=== PATIENT | male | born 1960 | race Caucasian/White ===

== ENCOUNTER 2021-03-25 14:00 | Inpatient (IN) | payer BC ==
[~2021-03-25] VITALS: Ht 175.3 cm; Wt 82.7 kg
[2021-03-25] VITALS (14 sets, daily range): BP systolic 72–184; BP diastolic 48–115
[2021-03-25] MEDS: IV NORMAL SALINE 1000ML BAG 1,000 ML IV ONE (14:15)
[2021-03-25] MEDS: PANTOPRAZOLE IV PUSH 40 MG VIAL. IVP ONE (14:34)
[2021-03-25 14:46] LABS: BASO # 0.1 x10^3/uL (0.0-0.2); BASO % 1 % (0-3); EOS % 0 % (0-3); LYMPH # 2.3 x10^3/uL (1.0-4.8); LYMPH % 23 % (24-48); MEAN CORPUSCULAR HEMOGLOBIN 33 pg (25-35); MEAN CORPUSCULAR HGB CONC 30 g/dL (31-37); MEAN CORPUSCULAR VOLUME 109 fL (79-100); MONO # 0.8 x10^3/uL (0.0-1.1); MONO % 9 % (0-9); NEUT # 6.5 x10^3/uL (1.8-7.7); NEUT % 67 % (31-73); PLATELET COUNT 280 x10^3/uL (140-400); RED BLOOD COUNT 1.76 x10^6/uL (4.30-5.70); RED CELL DISTRIBUTION WIDTH 25.3 % (11.5-14.5); WHITE BLOOD COUNT 9.7 x10^3/uL (4.0-11.0)
[2021-03-25 14:52] LABS: FECAL OB PT POSITIVE (NEG)
[2021-03-25 14:53] LABS: CALCIUM 7.8 mg/dL (8.5-10.1); CREATININE 1.2 mg/dL (0.7-1.3); GFR 61.8; POTASSIUM 5.3 mmol/L (3.5-5.1)
[2021-03-25 14:55] LABS: PROTHROMBIN TIME PATIENT 15.8 SEC (11.7-14.0)
[2021-03-25 14:59] LABS: ALBUMIN 2.1 g/dL (3.4-5.0); ALBUMIN/GLOBULIN RATIO 0.8 (1.0-1.7); TOTAL BILIRUBIN 0.2 mg/dL (0.2-1.0); TOTAL PROTEIN 4.6 g/dL (6.4-8.2)
[2021-03-25 15:02] LABS: HEMATOCRIT 19.2 % (39.0-53.0); HEMOGLOBIN 5.7 g/dL (13.0-17.5)
--- NOTE | 2021-03-25 15:05 | PHYS DOC ---
Past Medical History Past Medical History: Diabetes-Type II Additional Past Medical Histor: high cholesterol Past Surgical History: No Surgical History General Adult EDM: Chief Complaint: HYPOTENSION HPI: HPI: Patient is a 61 year old male with history of psoriasis, HTN, DM who presents with generalized fatigue, lightheadedness, nausea/vomiting. Also states that he started having black tarry stools this morning and his vomit was coffee-ground in nature. EMS blood pressure 70s/40s initially, up to 80 SBP after some IVF just prior to arrival. Patient is not on aspirin or blood thinners. He does take chronic prednisone for psoriasis. Drinks a pint of whiskey per day. Denies history of previous GI bleeding. Endorses shortness of breath. No chest pain. Review of Systems: Review of Systems: Constitutional: Reports severe Generalized fatigue. Denies fever or chills. [] Eyes: Denies change in visual acuity. [] HENT: Denies nasal congestion or sore throat. [] Respiratory: Denies cough. Reports shortness of breath. Cardiovascular: Denies chest pain or edema. [] GI: Reports nausea, vomiting, abdominal pain, melena, coffee-ground emesis. : Denies dysuria. [] Musculoskeletal: Denies back pain or joint pain. [] Integument: Denies rash. [] Neurologic: Denies headache, focal weakness or sensory changes. [] Endocrine: Denies polyuria or polydipsia. [] Lymphatic: Denies swollen glands. [] Psychiatric: Denies depression or anxiety. [] Heart Score: C/O Chest Pain: No Current Medications: Current Medications Medications (Trade) Dose Ordered Sig/Manuel Start Time Stop Time Status Last Admin Dose Admin Pantoprazole Sodium (PROTONIX VIAL for IV PUSH) 40 mg 1X ONCE 03/25/21 14:30 03/25/21 14:31 DC 03/25/21 14:34 40 MG Sodium Chloride 1,000 ml @ 1,000 mls/hr 1X ONCE 03/25/21 14:30 03/25/21 15:29 03/25/21 14:15 1,000 MLS/HR Allergies: Allergies: Allergies Coded Allergies Type Severity Reaction Last Updated Verified No Known Drug Allergies 03/25/21 No Physical Exam: PE: Constitutional: Pale, diaphoretic, toxic appearing, shivering HENT: pale conjunctivae Cardiovascular:Heart rate regular rhythm, no murmur [] Lungs & Thorax: Bilateral breath sounds clear to auscultation [] Abdomen: Diffuse abdominal tenderness to palpation with guarding Rectal: Black stool dried around the anus, frankly bloody and melanotic stool mixed together on DREW. Fecal occult positive. Skin: Warm, dry, no erythema, no rash. [] Back: No tenderness, no CVA tenderness. [] Extremities: Mild bilateral lower extremity edema. Neurologic: Alert and oriented X 3, normal motor function, normal sensory fun ction, no focal deficits noted. [] Psychologic: Affect normal, judgement normal, mood normal. [] Current Patient Data: Labs: Laboratory Tests Test 03/25/21 14:12 03/25/21 14:15 White Blood Count 9.7 x10^3/uL (4.0-11.0) Red Blood Count 1.76 x10^6/uL (4.30-5.70) L Hemoglobin 5.7 g/dL (13.0-17.5) *L Hematocrit 19.2 % (39.0-53.0) *L Mean Corpuscular Volume 109 fL (79-100) H Mean Corpuscular Hemoglobin 33 pg (25-35) Mean Corpuscular Hemoglobin Concent 30 g/dL (31-37) L Red Cell Distribution Width 25.3 % (11.5-14.5) H Platelet Count 280 x10^3/uL (140-400) Neutrophils (%) (Auto) 67 % (31-73) Lymphocytes (%) (Auto) 23 % (24-48) L Monocytes (%) (Auto) 9 % (0-9) Eosinophils (%) (Auto) 0 % (0-3) Basophils (%) (Auto) 1 % (0-3) Neutrophils # (Auto) 6.5 x10^3/uL (1.8-7.7) Lymphocytes # (Auto) 2.3 x10^3/uL (1.0-4.8) Monocytes # (Auto) 0.8 x10^3/uL (0.0-1.1) Eosinophils # (Auto) 0.0 x10^3/uL (0.0-0.7) Basophils # (Auto) 0.1 x10^3/uL (0.0-0.2) Platelet Estimate Pending Stool Occult Blood Positive (NEG) Laboratory Tests 03/25/21 14:12 Vital Signs: Vital Signs Date Time Temp Pulse Resp B/P (MAP) Pulse Ox O2 Delivery O2 Flow Rate FiO2 03/25/21 14:54 136 16 96/54 (68) 99 Room Air 03/25/21 14:05 97.4 97.4 EKG: EKG: Sinus rhythm. Rate 140. Normal axis. [] Radiology/Procedures: Radiology/Procedures: [] Impression: [facility] [address] [place] [address] IMAGING REPORT Signed PATIENT: SIGRID WARD ACCOUNT: [id number] : 1960 LOCATION: ER AGE: 61 SEX: M EXAM STATUS: PRE ER ORD. PHYSICIAN: DANNY HEATON MD REASON: hypotension, sob PROCEDURE: CHEST AP ONLY XR CHEST 1V Clinical Indication: Reason: hypotension, sob / Comparison: None. Findings: The cardiomediastinal silhouette is normal. Lungs are clear. There is no pneumothorax. No pleural effusion is appreciated. No acute bone abnormality. IMPRESSION: No acute cardiopulmonary process. Electronically signed by: Robert Chavez MD (03/25/2021 3:48 PM) [facility] DICTATED and SIGNED BY: ROBERT CHAVEZ MD DATE: 03/25/21 [id number] Course & Med Decision Making: Course & Med Decision Making Pertinent Labs and Imaging studies reviewed. (See chart for details) Patient is 61-year-old male who presents with coffee-ground emesis, melena, and hypotension. SBP in the 70s on arrival, pale, diaphoretic, ill-appearing. Blood transfusion with uncrossed matched blood 2 units started prior to laboratory results. Hemoglobin resulted at 5.7. Still persistent hypotension, but better color after 2 units. Will give an additional 2 units as well as a unit of FFP. Blood bank is ordering platelets, but we do not have them available currently. Patient is on prednisone chronically putting him at risk for ulcerative disease, and is a heavy drinker putting him at risk for variceal disease. Given Protonix, octreotide bolus/infusion, and ceftriaxone empirically. GI paged, aware of patient. Patient will be admitted to ICU for further management. Given his diffuse abdominal tenderness, CTA of the abdomen/pelvis has also been ordered. [address] Disclaimer: Dragon Disclaimer: This electronic medical record was generated, in whole or in part, using a voice recognition dictation system. Departure Departure Impression: Primary Impression: Hemorrhagic shock Additional Impressions: GI bleed Alcohol abuse Disposition: ADMITTED INPATIENT Admitting Physician: SAUL Pacheco) Condition: CRITICAL DANNY HEATON MD Mar 25, 2021 15:05
[2021-03-25 15:42] LABS: % ATYL 3 % (0-0); % BANDS 1 % (0-9); % BASOS 1 % (0-3); % LYMPHS 26 % (24-48); % METAS 1 % (0-0); % MONOS 5 % (0-10); % MYELOS 1 % (0-0); % SEGS 62 % (35-66); NUCLEATED RBC 4
[2021-03-25 15:43] LABS: TOXIC GRANULATION MOD; TOXIC VACUOLATION SLIGHT
[2021-03-25 15:44] LABS: PLT ESTIMATE ADEQUATE (ADEQUATE); POLYCHROMASIA MOD
[2021-03-25 15:45] LABS: ANISOCYTOSIS MARKED; POIKILOCYTOSIS SLIGHT
[2021-03-25 15:46] LABS: OVALOCYTES FEW; TEAR DROP CELLS OCC
--- NOTE | 2021-03-25 15:51 | RAD ---
XR CHEST 1V Clinical Indication: Reason: hypotension, sob / Comparison: None. Findings: The cardiomediastinal silhouette is normal. Lungs are clear. There is no pneumothorax. No pleural eff usion is appreciated. No acute bone abnormality. IMPRESSION: No acute cardiopulmonary process. Electronically signed by: Robert Chavez MD (03/25/2021 3:48 PM) [facility]
[2021-03-25] MEDS ORDERED: CONTRAST GIVEN. MC PRN (16:00)
[2021-03-25] MEDS: cefTRIAXone IV Push 1 GM VIAL. IVP ONE (16:01)
[2021-03-25] MEDS: OCTREOTIDE 100 MCG/ML VIAL IV ONE (16:15)
[2021-03-25] MEDS: ONDANSETRON PF 4 MG/2 ML VIAL. IVP ONE (16:23)
[2021-03-25] MEDS: OCTREOTIDE 500 MCG in IV NORMAL SALINE 100ML 100 ML IV PRN (16:28)
--- NOTE | 2021-03-25 17:51 | PDOC1 ---
History and Physical Date of Service: DOS: DATE: 03/25/21 TIME: 17:51 Chief Complaint: Chief Complain: Vomiting blood History of Present Illness: HPI: History obtained from discussion with the ED physician, ex-, patient and chart review: 61-year-old male with past medical history of psoriasis, hypertension, diabetes mellitus type 2, chronic steroid use who presents with fatigue, nausea vomiting of blood, and lightheadedness. He also started complaining of melena this morning with coffee-ground emesis. EMS was called from home and he had blood pressures of 70/40 initially and did receive IV fluids in route with systolics in the 80s. Patient does not take any blood thinners or aspirin. Denies any fevers, chest pain, abdominal pain, shortness of breath. Patient does endorse drinking a pint of bourbon daily with some beer. No history of GI bleeding in the past. Patient has had a colonoscopy in the past in which she is found to have polyps that were noncancerous. No lower GI bleeding in the past no history of varices. Past Medical/Surgical History: PMH/PSH: Past Medical History: Diabetes-Type II Additional Past Medical Histor: high cholesterol Past Surgical History: No Surgical History Allergies: Allergies: Coded Allergies: No Known Drug Allergies (Unverified , 03/25/21) Family History: Family History: Reviewed with no relevant findings Social History: Social History: Heavy drinking of a pint of bourbon and beer daily Current Medications: Current Medications Current Medications Sodium Chloride 1,000 ml @ 1,000 mls/hr 1X ONCE IV Last administered on 03/25/21at 14:15; Start 03/25/21 at 14:30; Stop 03/25/21 at 15:29; Status DC Pantoprazole Sodium (PROTONIX VIAL for IV PUSH) 40 mg 1X ONCE IVP Last administered on 03/25/21at 14:34; Start 03/25/21 at 14:30; Stop 03/25/21 at 14:31; Status DC Octreotide Acetate (SandoSTATIN) 50 mcg 1X ONCE IV Last administered on 03/25/21at 16:15; Start 03/25/21 at 15:45; Stop 03/25/21 at 15:46; Status DC Octreotide Acetate 500 mcg/ Sodium Chloride 101 ml @ 0 mls/hr CONT PRN IV SEE I/O RECORD Last administered on 03/25/21at 16:28; Start 03/25/21 at 15:45 Ceftriaxone Sodium (Rocephin) 1 gm 1X ONCE IVP Last administered on 03/25/21at 16:01; Start 03/25/21 at 15:45; Stop 03/25/21 at 15:46; Status DC Iohexol (Omnipaque 350 Mg/ml) 90 ml 1X ONCE IV ; Start 03/25/21 at 16:00; Stop 03/25/21 at 16:01; Status DC Info (CONTRAST GIVEN -- Rx MONITORING) 1 each PRN DAILY PRN MC SEE COMMENTS; Start 03/25/21 at 16:00; Stop 03/27/21 at 15:59 Ondansetron HCl (Zofran) 4 mg 1X ONCE IVP Last administered on 03/25/21at 16:23; Start 03/25/21 at 16:15; Stop 03/25/21 at 16:20; Status DC ROS: Review of Systems Review of System REVIEW OF SYSTEMS: GENERAL: Denies weakness SKIN: No bruising, hair changes or rashes. EYES: No blurred, double or loss of vision. NOSE AND THROAT: No history of nosebleeds, hoarseness or sore throat. HEART: No history of palpitations, chest pain or shortness of breath on exertion. LUNGS: Denies cough, hemoptysis, wheezing or shortness of breath. GASTROINTESTINAL: Vomiting blood GENITOURINARY: No history of frequency, urgency, hesitancy or nocturia. NEUROLOGIC: Denies history of numbness, tingling, or tremor. PSYCHIATRIC: No history of panic, anxiety or depression. ENDOCRINE: No history of heat or cold intolerance, polyuria or polydipsia. EXTREMITIES: Denies joint pain, pain on walking or stiffness. Physical Exam: Vital Signs: Vital Signs Date Time Temp Pulse Resp B/P (MAP) Pulse Ox O2 Delivery O2 Flow Rate FiO2 03/25/21 17:39 97.8 124 17 87/63 97.8 03/25/21 15:59 98 Room Air Physcial Exam: General: Well developed, well nourished, no acute distress, well appearing HEENT: Pupils equally round and reactive to light, EOMI, no discharge, normal conjunctiva Neck: Supple, no nuchal rigidity, no JVD, trachea midline, no tenderness Cardiac: RRR, no murmurs, no gallops, no rubs Chest/Lungs: CTAB, no wheeze, no rhonchi, no crackles Abdomen: soft, non-distended, no guarding, no peritoneal signs, non-tender Back: No tenderness Extremities: no edema, pulses intact, non-tender,capillary refill <3 sec bilateral upper and lower extremities, Neuro: Alert and oriented x 4, no focal deficits, normal speech Rectal: Black stool dried around the anus, frankly bloody and melanotic stool mixed together on DREW. Fecal occult positive. Labs: Labs: Laboratory Tests Test 03/25/21 14:12 03/25/21 14:15 White Blood Count 9.7 x10^3/uL (4.0-11.0) Red Blood Count 1.76 x10^6/uL (4.30-5.70) Hemoglobin 5.7 g/dL (13.0-17.5) Hematocrit 19.2 % (39.0-53.0) Mean Corpuscular Volume 109 fL (79-100) Mean Corpuscular Hemoglobin 33 pg (25-35) Mean Corpuscular Hemoglobin Concent 30 g/dL (31-37) Red Cell Distribution Width 25.3 % (11.5-14.5) Platelet Count 280 x10^3/uL (140-400) Neutrophils (%) (Auto) 67 % (31-73) Lymphocytes (%) (Auto) 23 % (24-48) Monocytes (%) (Auto) 9 % (0-9) Eosinophils (%) (Auto) 0 % (0-3) Basophils (%) (Auto) 1 % (0-3) Neutrophils # (Auto) 6.5 x10^3/uL (1.8-7.7) Lymphocytes # (Auto) 2.3 x10^3/uL (1.0-4.8) Monocytes # (Auto) 0.8 x10^3/uL (0.0-1.1) Eosinophils # (Auto) 0.0 x10^3/uL (0.0-0.7) Basophils # (Auto) 0.1 x10^3/uL (0.0-0.2) Segmented Neutrophils % 62 % (35-66) Band Neutrophils % 1 % (0-9) Lymphocytes % 26 % (24-48) Atypical Lymphocytes % (Manual) 3 % (0-0) Monocytes % 5 % (0-10) Basophils % 1 % (0-3) Metamyelocytes % 1 % (0-0) Myelocytes % 1 % (0-0) Nucleated Red Blood Cells 4 Toxic Granulation Mod Toxic Vacuolation Slight Platelet Estimate Adequate (ADEQUATE) Large Platelets Few Polychromasia Mod Poikilocytosis Slight Anisocytosis Marked Macrocytosis Mod Tear Drop Cells Occ Ovalocytes Few Prothrombin Time 15.8 SEC (11.7-14.0) Prothromb Time International Ratio 1.3 (0.8-1.1) Sodium Level 138 mmol/L (136-145) Potassium Level 5.3 mmol/L (3.5-5.1) Chloride Level 104 mmol/L (98-107) Carbon Dioxide Level 18 mmol/L (21-32) Anion Gap 16 (6-14) Blood Urea Nitrogen 22 mg/dL (8-26) Creatinine 1.2 mg/dL (0.7-1.3) Estimated GFR (Cockcroft-Gault) 61.8 BUN/Creatinine Ratio 18 (6-20) Glucose Level 241 mg/dL (70-99) Lactic Acid Level 10.8 mmol/L (0.4-2.0) Calcium Level 7.8 mg/dL (8.5-10.1) Total Bilirubin 0.2 mg/dL (0.2-1.0) Aspartate Amino Transf (AST/SGOT) 23 U/L (15-37) Alanine Aminotransferase (ALT/SGPT) 32 U/L (16-63) Alkaline Phosphatase 58 U/L (46-116) Troponin I High Sensitivity 23 ng/L (4-75) Total Protein 4.6 g/dL (6.4-8.2) Albumin 2.1 g/dL (3.4-5.0) Albumin/Globulin Ratio 0.8 (1.0-1.7) Stool Occult Blood Positive (NEG) Laboratory Tests Test 03/25/21 14:12 03/25/21 14:15 White Blood Count 9.7 x10^3/uL (4.0-11.0) Red Blood Count 1.76 x10^6/uL (4.30-5.70) Hemoglobin 5.7 g/dL (13.0-17.5) Hematocrit 19.2 % (39.0-53.0) Mean Corpuscular Volume 109 fL (79-100) Mean Corpuscular Hemoglobin 33 pg (25-35) Mean Corpuscular Hemoglobin Concent 30 g/dL (31-37) Red Cell Distribution Width 25.3 % (11.5-14.5) Platelet Count 280 x10^3/uL (140-400) Neutrophils (%) (Auto) 67 % (31-73) Lymphocytes (%) (Auto) 23 % (24-48) Monocytes (%) (Auto) 9 % (0-9) Eosinophils (%) (Auto) 0 % (0-3) Basophils (%) (Auto) 1 % (0-3) Neutrophils # (Auto) 6.5 x10^3/uL (1.8-7.7) Lymphocytes # (Auto) 2.3 x10^3/uL (1.0-4.8) Monocytes # (Auto) 0.8 x10^3/uL (0.0-1.1) Eosinophils # (Auto) 0.0 x10^3/uL (0.0-0.7) Basophils # (Auto) 0.1 x10^3/uL (0.0-0.2) Segmented Neutrophils % 62 % (35-66) Band Neutrophils % 1 % (0-9) Lymphocytes % 26 % (24-48) Atypical Lymphocytes % (Manual) 3 % (0-0) Monocytes % 5 % (0-10) Basophils % 1 % (0-3) Metamyelocytes % 1 % (0-0) Myelocytes % 1 % (0-0) Nucleated Red Blood Cells 4 Toxic Granulation Mod Toxic Vacuolation Slight Platelet Estimate Adequate (ADEQUATE) Large Platelets Few Polychromasia Mod Poikilocytosis Slight Anisocytosis Marked Macrocytosis Mod Tear Drop Cells Occ Ovalocytes Few Prothrombin Time 15.8 SEC (11.7-14.0) Prothromb Time International Ratio 1.3 (0.8-1.1) Sodium Level 138 mmol/L (136-145) Potassium Level 5.3 mmol/L (3.5-5.1) Chloride Level 104 mmol/L (98-107) Carbon Dioxide Level 18 mmol/L (21-32) Anion Gap 16 (6-14) Blood Urea Nitrogen 22 mg/dL (8-26) Creatinine 1.2 mg/dL (0.7-1.3) Estimated GFR (Cockcroft-Gault) 61.8 BUN/Creatinine Ratio 18 (6-20) Glucose Level 241 mg/dL (70-99) Lactic Acid Level 10.8 mmol/L (0.4-2.0) Calcium Level 7.8 mg/dL (8.5-10.1) Total Bilirubin 0.2 mg/dL (0.2-1.0) Aspartate Amino Transf (AST/SGOT) 23 U/L (15-37) Alanine Aminotransferase (ALT/SGPT) 32 U/L (16-63) Alkaline Phosphatase 58 U/L (46-116) Troponin I High Sensitivity 23 ng/L (4-75) Total Protein 4.6 g/dL (6.4-8.2) Albumin 2.1 g/dL (3.4-5.0) Albumin/Globulin Ratio 0.8 (1.0-1.7) Stool Occult Blood Positive (NEG) Images: Images PROCEDURE: CHEST AP ONLY XR CHEST 1V Clinical Indication: Reason: hypotension, sob / Comparison: None. Findings: The cardiomediastinal silhouette is normal. Lungs are clear. There is no pneumothorax. No pleural effusion is appreciated. No acute bone abnormality. IMPRESSION: No acute cardiopulmonary process. Assessment/Plan Assessment/Plan Sepsis Severe symptomatic profound anemia secondary to acute blood loss Hemodynamic instability secondary to acute blood loss Acute upper GI bleed Lactic acidosis due to volume depletion History of alcohol abuse Severe protein malnutrition Chronic steroid use, prednisone 10 mg twice daily for 1 year to prevent psoriasis flares History of psoriasis History of diabetes mellitus type 2 Admit to ICU care for further management Continue octreotide drip Continue Protonix IV twice daily GI consult Pending 2 units PRBC Continue fluid resuscitation Vasopressors as needed to maintain maps greater than 55 Ceftriaxone for SBP prophylaxis Pending cortisol a.m. levels to rule out adrenal insufficiency within the context of hemodynamic instability Contraindicated for DVT prophylaxis Protonix GI prophylaxis ADA diet CODE STATUS assumed full code Discussed with RN and SW Disposition inpatient management as above DPOA: Ex- A total of 60 minutes of critical care time was spent in reviewing chart, labs, and images. Discussed with RN and SW. Justifications for Admission Other Justification GI bleeding and hypotension GRACE HERRERA MD Mar 25, 2021 17:51
[2021-03-25] MEDS ORDERED: METOCLOPRAMIDE HCL 10 MG/2 ML VIAL. ONE (17:53)
[2021-03-25] MEDS ORDERED: DOCUSATE SODIUM 100 MG CAPSULE. PO PRN (18:00)
[2021-03-25] MEDS ORDERED: ZOLPIDEM 5 MG TABLET. PO PRN ×2 (18:00)
[2021-03-25] MEDS ORDERED: diphenhydrAMINE 50 MG/ML VIAL IVP PRN (18:00)
[2021-03-25] MEDS ORDERED: diphenhydrAMINE HCL 25 MG CAPSULE PO PRN ×2 (18:00)
[2021-03-25] MEDS ORDERED: PROCHLORPERAZINE 10 MG/2 ML VIAL. IV PRN (18:00)
[2021-03-25] MEDS: METOCLOPRAMIDE HCL 10 MG/2 ML VIAL. IVP ONE (18:00)
[2021-03-25] MEDS ORDERED: DEXTROSE 50% 25 GM / 50ML DISP.SYRIN. IV PRN ×2 (18:00→20:00)
[2021-03-25] MEDS ORDERED: LORazepam 0.5 MG TABLET PO PRN (18:00)
[2021-03-25] MEDS ORDERED: ONDANSETRON PF 4 MG/2 ML VIAL. IVP PRN (18:00)
[2021-03-25] MEDS ORDERED: SENNOSIDES 8.6 MG TABLET PO PRN (18:00)
[2021-03-25] MEDS: IV NORMAL SALINE 1000ML BAG 1,000 ML IV SCH (18:40)
[2021-03-25] MEDS: ACETAMINOPHEN 325 MG TABLET. PO PRN (19:59)
--- NOTE | 2021-03-25 20:00 | NUR ---
C/o headache. "Might be the bright lights shining in my face all day." Tylenol given po w/ sip of water. BP 75/43.
--- NOTE | 2021-03-25 20:30 | NUR ---
BP 148/76. RR 21, 100%. Patient diaphoretic and c/o SOA.
[2021-03-25 20:43] LABS: BILIRUBIN,URINE SMALL (NEG); CLARITY,URINE CLEAR; COLOR,URINE YELLOW; NITRITE,URINE NEGATIVE (NEG); PH,URINE 5.5 (<5.0-8.0); PROTEIN,URINE NEGATIVE (NEG-TRACE); UROBILINOGEN,URINE 0.2 mg/dL (0.2 mg/dL)
[2021-03-25 20:56] LABS: HYALINE CASTS, URINE MANY /HPF
[2021-03-25 20:59] LABS: BACTERIA,URINE 0 /HPF (0-FEW); RBC,URINE OCC /HPF (0-2)
[2021-03-25 21:00] LABS: GRANULAR CASTS,URINE OCCASIONAL /HPF
--- NOTE | 2021-03-25 21:30 | NUR ---
This RN returned to the floor (after transferring a patient upstairs) and patient had passed a large bloody stool per bedpan. Patient is pale, diaphoretic. BP 168/140, P 151, RR 26, SpO2 monitor being replaced due to poor reading. 15L NRB placed on patient, pt states "I can't breathe too good." Jeri RN was called for assistance and she came right away. Charge nurse soon came and then Dr. Toney arrived.
[2021-03-25] MEDS ORDERED: MAGNESIUM SULFATE PREMIX 1 GM/100 ML BAG. IV ONE (22:00)
[2021-03-25] MEDS ORDERED: SODIUM BICARB ADULT 8.4% 50 MEQ/50 ML DISP.SYRIN. ONE (22:00)
[2021-03-25] MEDS ORDERED: CALCIUM CHLORIDE 1,000 MG/10 ML DISP.SYRIN ONE (22:00)
[2021-03-25] MEDS ORDERED: AMIODARONE 150 MG/3 ML VIAL ONE (22:00)
[2021-03-25] MEDS ORDERED: EPINEPHrine SYRINGE 1 MG/10 ML SYRINGE. ONE (22:00)
[2021-03-25] MEDS: IOHEXOL 350 MG/ML 100 ML VIAL. IV ONE (23:00)
[2021-03-26] MEDS ORDERED: PANTOPRAZOLE IV PUSH 40 MG VIAL. IVP SCH (07:30)
[2021-03-26] MEDS ORDERED: INSULIN LISPRO 300 UNITS/3 ML VIAL. SQ SCH (08:00)
--- NOTE | 2021-03-26 13:32 | PDOC3 ---
[facility]-Discharge Summary Date of Admission: Date of Admission: Mar 25, 2021 Date of Discharge: Date of Discharge: Mar 25, 2021 Admission Diagnosis: Admitting Diagnosis: SUMMARY Discharge Diagnosis: Discharge Diagnosis: Sepsis Severe symptomatic profound anemia secondary to acute blood loss Hemodynamic instability secondary to acute blood loss Acute upper GI bleed Lactic acidosis due to volume depletion History of alcohol abuse Severe protein malnutrition Chronic steroid use, prednisone 10 mg twice daily for 1 year to prevent psoriasis flares History of psoriasis History of diabetes mellitus type 2 Hospital Course: Hospital Course: 61-year-old male with past medical history of psoriasis, hypertension, diabetes mellitus type 2, chronic steroid use who presents with fatigue, nausea vomiting of blood, and lightheadedness. He also started complaining of melena this morning with coffee-ground emesis. EMS was called from home and he had blood pressures of 70/40 initially and did receive IV fluids in route with systolics in the 80s. Patient does not take any blood thinners or aspirin. Denies any fevers, chest pain, abdominal pain, shortness of breath. Patient does endorse drinking a pint of bourbon daily with some beer. No history of GI bleeding in the past. Patient has had a colonoscopy in the past in which she is found to gallardo ve polyps that were noncancerous. No lower GI bleeding in the past no history of varices. Patient did receive 4 units of PRBC and FFP in approximately 9:50 PM patient would become agonal breathing and a 15 L nonrebreather was placed. He was eventually bagged manually as we were unable to get O2 saturations or vital signs. CODE BLUE was called once patient's rhythm was undetectable and there was no pulse found. Please see CODE BLUE sheet for details. ACLS was ongoing for approximately 30 minutes and we were not getting any pulse. I spoke with daughter outside and explained to her that even if the patient survive this code he will very likely be on ventilatory support indefinitely. Daughter daughter stated that patient would have never wanted to become a vegetable and at this point daughter decided to withdraw care. Time of was 10:09 PM. Disposition: Disposition/Orders: Activity: Activity: Resume previous activity Total Time: Total Time: Total time spent was 32 minutes in preparing this summary Patient seen and examined on day of . No acute abnormal findings. Justicifation of Admission Dx: Justifications for Admission: Justification of Admission Dx: Yes Aspiration Pneumonia: Hemodynamic Instability GRACE HERRERA MD Mar 26, 2021 13:31
[2021-03-26] MEDS ORDERED: cefTRIAXone IV Push 1 GM VIAL. IVP SCH (15:00)
--- NOTE | 2021-03-27 19:19 | EKG ---
[facility] [address] [place] [address] Test Date: 2021-03-25 Test Time: 14:15:33 Pat Name: SIGRID WARD Department: Room: ED HOLD 21 Gender: M [employer] Machine Operator: : 1960 Requested By: DANNY HEATON Order Number: [id number] Reading MD: Delmer Forbes Measurements Intervals [place] Rate: 140 P: 58 [place]: 94 QRS: 48 QRSD: 84 T: 28 QT: 292 QTc: 449 Interpretive Statements SINUS TACHYCARDIA Electronically Signed On 03-31-2021 16:22:40 PST SUPERVISOR by Delmer Forbes
== END 2021-03-25 22:50 | DRG 871 ==
LOC: ER 14:00 → ED HOLD 15:40 → UNDODISIN 04-04 13:17
PROVIDERS: ADMIT Internal Medicine; ATTEND Internal Medicine
PROC: 30233K1 Transfusion of Nonautologous Frozen Plasma into Peripheral Vein, Percutaneous Approach (ICD-10-PCS; principal; 2021-03-25)
PROC: 30233N1 Transfusion of Nonautologous Red Blood Cells into Peripheral Vein, Percutaneous Approach (ICD-10-PCS; 2021-03-25)
DX: A41.9 Sepsis, unspecified organism (principal); E43 Unspecified severe protein-calorie malnutrition; D62 Acute posthemorrhagic anemia; K92.0 Hematemesis; E11.9 Type 2 diabetes mellitus without complications; E78.00 Pure hypercholesterolemia, unspecified; E86.9 Volume depletion, unspecified; F10.10 Alcohol abuse, uncomplicated; I10 Essential (primary) hypertension; L40.9 Psoriasis, unspecified; R57.8 Other shock; Z79.52 Long term (current) use of systemic steroids
CPT/HCPCS: 36415; 36430; 71045; 80053; 81001; 82274; 82533; 82962; 83605; 84484; 85007; 85025; 85384; 85610; 86850; 86900; 86901; 86920; 86927; 93005; C9113; J0171; J0282; J0696; J1815; J2354; J2405; J3475; J3490; J7030; P9016; P9017; 99285-25